=== PATIENT | female | born 1995 | race Caucasian/White ===

== ENCOUNTER 2018-01-24 15:35 | Emergency (ER) | payer OTHER ==
[2018-01-24 16:09] VITALS: BP 106/66
--- NOTE | 2018-01-24 16:58 | UC ---
Ann Padilla Gabriel, scribed for Janet Atwood MD on 01/24/18 at 1649 . Complaint Female HPI - HPI Summary HPI Summary: This patient is a 22 year old F presenting to [facility] [place] with a chief complaint of UTI symptoms for the last two days. The patient rates the pain 4/10 in severity. Patient reports dysuria, increased frequency, and back pain. Patient denies fever and n/v. LNMP was the beginning this month. Hx of UTIs. NKDA - History Of Current Complaint Chief Complaint: UCGU Stated Complaint: BURNING URINATION Time Seen by Provider: 01/24/18 16:42 Hx Obtained From: Patient Hx Last Menstrual Period: 01/02/2018 Onset/Duration: Lasting Days, Still Present Timing: Constant Severity Initially: Moderate Severity Currently: Moderate Pain Intensity: 4 Pain Scale Used: 0-10 Numeric Character: Burning Associated Signs And Symptoms: Positive: Negative - fever, n/v,, Back Pain - Allergies/Home Medications Allergies/Adverse Reactions: Allergies Allergy/AdvReac Type Severity Reaction Status Date / Time No Known Allergies Allergy Verified 01/24/18 16:09 Home Medications: Home Medications Acetaminophen [Tylenol] 6 01/24/18 [History] Ibuprofen [Advil] 200 mg PO 01/24/18 [History] PMH/Surg Hx/FS Hx/Imm Hx GI/ History: Other Other GI/ History: UTI's - Surgical History Surgical History: None - Family History Known Family History: Positive: Diabetes Negative: Respiratory Disease, Seizure Disorder - Social History Occupation: Student Lives: With Family Alcohol Use: Occasionally Substance Use Type: None Smoking Status (MU): Never Smoked Tobacco Review of Systems Constitutional: Negative Skin: Negative Eyes: Negative ENT: Negative Respiratory: Negative Cardiovascular: Negative Gastrointestinal: Negative Genitourinary: Dysuria, Frequency, Urgency Motor: Negative Neurovascular: Negative Musculoskeletal: Other: - mild back pain Neurological: Negative Psychological: Negative Is Patient Immunocompromised?: No All Other Systems Reviewed And Are Negative: Yes Physical Exam Triage Information Reviewed: Yes Appearance: Well-Appearing, No Pain Distress Vital Signs: Initial Vital Signs Temp 99.0 F 01/24/18 16:04 Pulse 88 01/24/18 16:04 Resp 16 01/24/18 16:04 BP 106/66 01/24/18 16:04 Pulse Ox 100 01/24/18 16:04 Vital Signs Reviewed: Yes ENT: Positive: Pharynx normal Neck: Positive: Supple, Nontender, No Lymphadenopathy Respiratory: Positive: Lungs clear, Normal breath sounds Cardiovascular: Positive: RRR, No Murmur Abdomen Description: Positive: Nontender, No Organomegaly. Negative: CVA Tenderness (R), CVA Tenderness (L) Musculoskeletal Exam: Normal Neurological Exam: Normal Psychological Exam: Normal Skin Exam: Normal Diagnostics - Laboratory Diagnostic Studies Completed/Ordered: UA with WBC and RBC Complaint Female Dx - Course Course Of Treatment: Pt medications reviewed this visit. The patient is a 22 y/ o F presenting with dysuria and UTI symptoms for the past two days. - Differential Dx/Diagnosis Differential Diagnosis/HQI/PQRI: Urinary Tract Infection Provider Diagnoses: UTI Discharge - Sign-Out/Discharge Documenting (check all that apply): Discharge - Discharge Plan Condition: Stable Disposition: HOME Prescriptions: Sulfamethox/Trimethoprim DS* [Bactrim DS 800/160 TAB*] 1 tab PO DAILY #10 tab Patient Education Materials: Urinary Tract Infection in Women (ED) Referrals: No Primary Care Phys,NOPCP [Primary Care Provider] - Additional Instructions: Continue high intake of fluids; begin use of bactrim for treatment of urinary tract infection. Should the culture show an infection which will not be treated by this antibiiotic, you will receive a call in 2 to 3 days. - Billing Disposition and Condition Condition: STABLE Disposition: HOME The documentation as recorded by the Ann khan Gabriel accurately reflects the service I personally performed and the decisions made by me, Janet Atwood MD.
== END 2018-01-24 17:05 | disposition home or self-care (01) ==
LOC: UCEAST 15:35
DX: N39.0 Urinary tract infection, site not specified (principal); B96.89 Other specified bacterial agents as the cause of diseases classified elsewhere; Z32.02 Encounter for pregnancy test, result negative; Z87.440 Personal history of urinary (tract) infections
CPT/HCPCS: 81003; 84702; 87077; 87086; 87186; 99202; G0463